=== PATIENT | female | born 1995 | race Caucasian/White ===

== ENCOUNTER 2020-12-22 10:55 | Outpatient (CLI) | payer OTHER, SELFPAY ==
--- NOTE | ~2020-12-22 | XR_ITS ---
XR thoracic spine 3V DATE: 12/22/2020 11:40 INDICATION: Back pain, chronic. No injury. TECHNIQUE: AP, lateral, swimmer views COMPARISON: 12/22/2020 cervical spine and lumbar spine FINDINGS: Normal alignment of the thoracic spine. No fracture or dislocation or bone destruction. The thoracic pedicles are intact. No paraspinal soft tissue thickening. There is degenerative spurring a t T11-12. IMPRESSION: Mild degenerative spurring of the lower thoracic spine Reviewed, dictated and finalized at location B.
--- NOTE | ~2020-12-22 | XR_ITS ---
XR cervical spine 4-5V DATE: 12/22/2020 11:39 INDICATION: Chronic neck pain. No injury. TECHNIQUE: AP, open-mouth, lateral and swimmer views COMPARISON: None FINDINGS: There is mild reversal of cervical curvature. C1 and C2 are normally aligned and the odontoid process is intact. No fracture or dislocation or lock ed facet or prevertebral soft tissue swelling. Cervical spaces are relatively preserved. IMPRESSION: Mild reversal of cervical curvature Reviewed, dictated and finalized at location B.
--- NOTE | ~2020-12-22 | XR_ITS ---
XR lumbar spine 6V w bending DATE: 12/22/2020 11:40 INDICATION: Chronic back pain. No injury. TECHNIQUE: AP, bilateral oblique, coned lateral lumbosacral, lateral and flexion and extension latera l views COMPARISON: None FINDINGS: There is a transitional fifth lumbar vertebra with sacralization on the right and lumbariza tion on the left. This may be a source of chronic low back pain. Normal alignment of the lumbar spine. No fracture or bone destruction, spondylolysis or spondylolisth esis. The lumbar interspaces are well preserved. There is no evidence of instability on flexion or ex tension. IMPRESSION: Transitional fifth lumbar vertebra Reviewed, dictated and finalized at location B.
== END 2020-12-22 10:56 | disposition home or self-care (01) ==
PROVIDERS: PCP Physician Assistant; Visit Provider Physician Assistant
DX: M54.9 Dorsalgia, unspecified (principal); M51.34 Other intervertebral disc degeneration, thoracic region
CPT/HCPCS: 72050; 72072; 72114

== ENCOUNTER 2021-02-04 07:00 | Outpatient (RCR) | payer OTHER, SELFPAY ==
--- NOTE | 2021-01-06 12:53 | PTOPEVAL ---
Thank you for referring Demetrius Ross to [facility].? The patient is scheduled to be seen for therapy? _1-2 x/week for 6 weeks. Please review, sign, date and return this plan of care AYAN. I agree with and certify that the following plan of care is medically necessary. Referring Physician Date Attending Provider: Jimbo Rider, TAMICA Diagnosis chronic back pain Onset 2 yr Additional Evaluation Detail Mild degenerative spurring of the lower thoracic spine Subjective Information She has been having issues Query Text:As Reported By Patient/ with her back for 2 yrs. Family Reports the mid back is more painful vs lower back region. She has new c/o left shoulder pain with unknown cause. She was working at [employer] when the pain started. She is working at a desk. Denies any fitness program. She wears only flip flops or slip on shoes. Denies any back issues with ADL's. She will have occasional sharp pain with twisting motion. She will have intermittent pain with prolonged sitting. She has soreness with household soreness. Denies issues with community mobility. Diagnostic Tests X-Rays For This Problem Yes: transitional fifth lumbar vertebra Previous Treatments Previous Treatments For This Problem 1 yr ago, chiro Pain Assessment Timing of Pain Assessment Timing of Pain Assessment Assessment Pain Scale Pain Scale Used Numeric (1 - 10) Self Report Pain Assessment Bilateral Lower Back Reported Pain Level 2 Pain Description Soreness Pain Frequency Chronic Lowest Pain Intensity 2 Greatest Pain Intensity 5 Pain Aggravating Factors Prolonged Position,Sitting Pain Score Pain Score 2: Self Report Interventions Used Interventions Used By Clinicians Education,Exercise Cervical and Lumbar ROM Lumbar ROM Lumbar Flexion Active [place]:Hands to: Lumbar Extension (0-40) 40 Query Text:Active in Degrees Lateral Flexion proximal calf region:Active Hands to: Lumbar ROM WNL Lumbar Comments pain with trunk flex motion 100% lateral flex, ext and
--- NOTE | 2021-02-04 07:42 | PTOPEVAL ---
Discharge Summary Thank you for referring Demetrius Ross to [facility].? She has attended 8 therapy visits to address her limitations related to her back pain. She has been instructed in a HEP and demonstrates indep with performing. She demonstrates normal trunk motion with improved trunk and LE strength. She has achieved her therapy goals at this time. Will DC skilled therapy services at this time. Please review, sign, date and return this discharge summary AYAN. I agree with and certify that the following plan of care is medically necessary. Referring Physician Date Attending Provider: Jimbo Rider PA-C Diagnosis chronic back pain Onset 2 yr Additional Evaluation Detail Mild degenerative spurring of the lower thoracic spine Subjective Information Reports her back feels better Query Text:As Reported By Patient/ in general since starting Family therapy. She is performing HEP 4x/wk.Denies any problems with her HEP. Her desk set-up is better with improved pain/ discomfort. Pain Assessment Timing of Pain Assessment Timing of Pain Assessment Re-assessment Self Report Self Report Pain Level 0 Pain Score Pain Score 0: Self Report Cervical and Lumbar ROM Lumbar ROM Lumbar Flexion Active Ankle Query Text:Hands to: Lumbar Extension (0-40) 40:Active in Degrees Lateral Flexion proximal calf region:Active Hands to Lumbar ROM WNL Lumbar Comments no pain pain with trunk motions 100% lateral flex, ext and rotation Cervical and Lumbar Muscle Testing Lumbar Strength Upper Abdominal Strength 4-Good- Lower Abdominal Strength 4-Good- Upper Back Extension 4 Good Lower Back Extension 4 Good Lumbar Functional Strength Comments moderate trunk shift with single leg stance and seated marching with decreased core stability Lower Extremity Muscle Strength Testing General Lower Extremity Strength Gross Lower Extremity Strength pattie hip flex: 4+/5, hip ext:4+ /5, abduction: 4-/5 knee ext: 5/5, knee flex: 5/5 ankle DF: 5/5 no pain with testing Palpation Assessment Palpation Palpation no tenderness of lumbar paraspinals, QL region pattie, and pattie glut region Special Tests-Lower Extremity Hip Special Tests Trendelenburg Sign Negative Left,Negative Right Hip Special Test Comments
== END 2021-02-04 13:46 | disposition home or self-care (01) ==
LOC: ANHPT 07:00
PROVIDERS: PCP Physician Assistant; Visit Provider Physician Assistant
DX: M54.9 Dorsalgia, unspecified (principal)
CPT/HCPCS: 97110; 97140; 97161